=== PATIENT | female | born 1950 | race Caucasian/White ===

== ENCOUNTER → 2017-12-17 | Outpatient (CLI) | payer OTHER ==
[2011-08-10 15:59] VITALS: BP 128/72
[~2017-12-17] MED LIST: NO HOME MEDICATIONS; NORCO 325 MG-51 TAB PO
== END ==
LOC: MAMMO 10:09
DX: Z12.31 Encounter for screening mammogram for malignant neoplasm of breast (principal); Z98.890 Other specified postprocedural states; Z13.820 Encounter for screening for osteoporosis

== ENCOUNTER → 2018-12-03 | Outpatient (CLI) | payer MEDICARE, OTHER ==
[2011-08-10 15:59] VITALS: BP 128/72
== END ==
LOC: MAMMO 12:15
DX: R92.2 Inconclusive mammogram (principal); Z85.3 Personal history of malignant neoplasm of breast

== ENCOUNTER → 2019-03-08 | Outpatient (CLI) | payer MEDICARE ==
[2011-08-10 15:59] VITALS: BP 128/72
== END ==
LOC: MAMMO 09:56
DX: Z12.31 Encounter for screening mammogram for malignant neoplasm of breast (principal); N63.11 Unspecified lump in the right breast, upper outer quadrant; Z98.890 Other specified postprocedural states

== ENCOUNTER → 2019-03-15 | Outpatient (CLI) | payer MEDICARE, OTHER ==
[2011-08-10 15:59] VITALS: BP 128/72
== END ==
LOC: MAMMO 07:08
DX: N63.11 Unspecified lump in the right breast, upper outer quadrant (principal); C50.011 Malignant neoplasm of nipple and areola, right female breast; Z90.12 Acquired absence of left breast and nipple

== ENCOUNTER → 2019-03-18 | Outpatient (CLI) | payer MEDICARE ==
[2011-08-10 15:59] VITALS: BP 128/72
== END ==
LOC: RAD 12:15
DX: Z12.31 Encounter for screening mammogram for malignant neoplasm of breast (principal); N63.10 Unspecified lump in the right breast, unspecified quadrant
CPT/HCPCS: 15989; 15990; A4648

== ENCOUNTER → 2020-02-18 | Outpatient (CLI) | payer MEDICARE, OTHER ==
[2011-08-10 15:59] VITALS: BP 128/72
== END ==
LOC: AMSURD 09:10
DX: R00.2 Palpitations (principal)

== ENCOUNTER → 2020-02-23 | Outpatient (CLI) | payer MEDICARE, OTHER ==
[2011-08-10 15:59] VITALS: BP 128/72
== END ==
LOC: LAB 10:38
DX: Z20.828 Contact with and (suspected) exposure to other viral communicable diseases (principal)

== ENCOUNTER → 2020-02-28 | Day surgery (SDC) | payer MEDICARE, OTHER ==
[2011-08-10 15:59] VITALS: BP 128/72
== END ==
LOC: MSO 08:01
DX: Z12.11 Encounter for screening for malignant neoplasm of colon (principal); Z80.0 Family history of malignant neoplasm of digestive organs; K62.1 Rectal polyp; Z79.82 Long term (current) use of aspirin
CPT/HCPCS: 00811; J2704; J3010; J7120

== ENCOUNTER → 2020-12-01 | Outpatient (CLI) | payer MEDICARE, OTHER | LOC: MAMMO 10:57 | DX: Z12.31 Encounter for screening mammogram for malignant neoplasm of breast (principal); Z98.890 Other specified postprocedural states; Z98.82 Breast implant status; Z92.3 Personal history of irradiation ==

== ENCOUNTER → 2022-02-06 | Outpatient (CLI) | payer MEDICARE, OTHER | LOC: MAMMO 08:30 | DX: Z12.31 Encounter for screening mammogram for malignant neoplasm of breast (principal) ==

== ENCOUNTER → 2024-06-09 | Outpatient (CLI) | payer MEDICARE, OTHER | LOC: RAD 11:27 → MAMMO 11:30 | DX: Z13.820 Encounter for screening for osteoporosis (principal); Z12.31 Encounter for screening mammogram for malignant neoplasm of breast; Z78.0 Asymptomatic menopausal state ==